=== PATIENT | female | born 1940 | race Caucasian/White ===

== ENCOUNTER 2018-10-04 11:48 | Inpatient (IN) | payer MEDICARE, OTHER ==
[2018-10-04] MEDS ORDERED: MORPHINE SULFATE 4 MG/ML SYRINGE IVP PRN (13:55)
[2018-10-04 15:24] LABS: HCT 42.7 % (34.0-46.0); HGB 13.3 gm/dL (11.4-16.0); MCHC 31.2 g/dL (31.0-37.0); MCV 86.6 fL (80.0-100.0); Mean Platelet Volume 6.6; Platelet Count 338 k/uL (150-450); RBC 4.92 m/uL (3.80-5.40); RDW 15.5 % (11.5-15.5)
[2018-10-04 15:30] LABS: Albumin 3.5 g/dL (3.5-5.0); Calcium 8.8 mg/dL (8.4-10.2); Magnesium 2.5 mg/dL (1.6-2.3); Phosphorus 5.4 mg/dL (2.5-4.5); Total Bilirubin 0.6 mg/dL (0.2-1.3); Total Protein 7.2 g/dL (6.3-8.2)
[2018-10-04] MEDS: CYCLOBENZAPRINE 5 MG TAB PO PRN (15:32)
--- NOTE | 2018-10-04 16:42 | P.GSCN ---
History of Present Illness Consult date: 10/04/18 Reason for Consult: Cellulitis, lymphedema Requesting physician: Janel Simeon History of present illness: This is a 78 year old female patient who follows with nurse practitioner Adarsh Kaplan on an outpatient basis. She has a previous medical history of lower extremity swelling, morbid obesity status post lap band surgery in 2009, bilateral knee replacements in 2004 and 2006 with DVT following surgery and sub sequent placement of [place] filter, hysterectomy, and breast lumpectomy. She was referred to Dr. Haider for lower extremity weeping and edema. She states she has had these issues for some time, however it has become significantly worse over the last 2 weeks. She also complains of lower extremity pain with rest and activity. She denies any other aggravating or alleviating symptoms. Due to the extent of her lower extremity edema and probable cellulitis patient was admitted to [facility] for IV antibiotics and aggressive therapy to her lower extremities with consultation placed to Dr. Haider for lower extremity management. Review of Systems Review of systems was completed and was negative except as noted. 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 Past Anesthesia/Blood Transfusion Reactions: No Reported Reaction, Motion Sickness Past Psychological History: No Psychological Hx Reported Smoking Status: Never smoker Past Alcohol Use History: None Reported Past Drug Use History: None Reported - Past Family History Father History Unknown: Yes Additional Family Medical History / Comment(s): Pt is adopted Mother History Unknown: Yes Additional Family Medical History / Comment(s): Pt is adopted. Medications and Allergies Home Medications Medication Instructions Recorded Confirmed Type Furosemide [Lasix] 40 mg PO BID 10/04/18 10/04/18 History Multivitamin [Multivitamins Adult 1 tab PO DAILY 10/04/18 10/04/18 History Gummies] Allergies Allergy/AdvReac Type Severity Reaction Status Date / Time clindamycin Allergy Rash/Hives Verified 10/04/18 14:45 torsemide Allergy Rash/Hives Verified 10/04/18 14:45 Surgical - Exam Vital Signs Resp 16 10/04/18 13:56 - General well developed, well nourished, no distress, moderate pain, chronically ill, obese - Eyes normal ocular movement - ENT no hearing loss - Neck trachea midline - Respiratory Lungs sounds clear bilaterally. Respirations even, nonlabored. Currently on room air. - Cardiovascular S1, S2 present. Regular rate and rhythm. Palpable peripheral pulses bilaterally. Generalized lymphedema present to bilateral lower extremities. No calf pain or tenderness noted. - Abdomen Abdomen: soft, non tender, bowel sounds - Genitourinary Deferred - Rectum Deferred - Integumentary Skin is warm and dry. Bilateral lower extremities with dry, rough and scaly patches in areas, as well as open/abraded areas with redness and serous drainage. See chart for pictures. - Neurologic normal coordination, normal sensation - Musculoskeletal normal posture - Psychiatric oriented to time, oriented to person, oriented to place, speech is normal, memory intact Results - Labs 10/04/18 14:55 10/04/18 14:55 Assessment and Plan Assessment: 1. Cellulitis, lymphedema of the lower extremities 2. History of lower extremity edema with weeping over the last several years 3. Morbid obesity, status post lap band surgery 2009 4. History of bilateral knee replacements with DVT following surgery and subse quent placement of [place] filter Plan: The patient was seen and examined at the bedside. Case was discussed with Dr. Haider. At this time our recommendations are for Silvadene cream to be applied to bilateral lower extremities, covered with Kerlix, and apply gentle Royer wraps from toes to knees daily as well as when necessary. Bilateral lower extremities should be elevated 6 inches above the level of the heart at all times except when sitting up to eat and to use the restroom. This was discussed in detail with the patient's primary nurse and the patient. Once edema has decreased and legs have dried out we will switch to absorptive silver dressings. Patient likely will need placement at discharge. Antibiotics and medical management of other comorbid conditions per primary care service. Thank you Dr. Simeon for this consult. We will continue to follow along with you. Time with Patient: Greater than 30
[2018-10-04] MEDS ORDERED: MELATONIN 3 MG TABLET PO PRN (17:25)
[2018-10-04] MEDS ORDERED: ACETAMINOPHEN TAB 325 MG TAB PO PRN (17:25)
[2018-10-04] MEDS ORDERED: NALOXONE 0.4 MG/ML 1 ML VIAL IV PRN (17:25)
[2018-10-04] MEDS ORDERED: ONDANSETRON 4 MG/2 ML VIAL IVP PRN (17:25)
[2018-10-04] MEDS ORDERED: BISACODYL 5 MG TABLET.DR PO PRN (17:25)
[2018-10-04] MEDS ORDERED: VANCOMYCIN IV PER PHARMACY 1 EACH MISC MISCELLANE PRN (17:28)
--- NOTE | 2018-10-04 17:34 | P.HPIM ---
History of Present Illness H&P Date: 10/04/18 Chief Complaint: lower extremity edema Patient is a 78-year-old female past medical history of chronic lymphedema, left larger me DVT, glaucoma and macular degeneration, chronic low back pain, and frequent pneumonias who presented to the Dr. Haider's office on the day of admission. There they were concerned about failed outpatient treatment of cellulitis and severe lymphedema and called for direct admission. Patient reports that she started having severe lower extremity swelling approximately 2 weeks ago. She went and saw her PCP Adarsh Kaplan, nurse krystin ctitioner 2 days later. She was started on antibiotics and Royer wrapping. She was trying to keep her legs dry and was doing twice-daily dressing. She noticed that she had limited improvement and therefore schedule an appointment with Dr. Enriquez. Patient seen and examined at bedside. She reports large community edema for 2 weeks associated with weeping, warmth, and erythema. She is also having some cramping in her upper leg and lower calf on the left. She reports that her PCP was trying to get home care set up but nobody took her insurance. She reports that the pain is worse when trying to be up and ambulating better when she is resting. She's been sitting and sleeping in a rocking chair with her feet elevated. She had been taking her Lasix once daily and this was increased to twice daily 2 weeks ago. She also reports that she was started on Cefdinir. She did not notice any improvement and therefore schedule an appointment Dr. Haider. She reports that she has had low energy and activity. She denies any recent shortness of breath, chest pain, palpitations, syncope, or cough. She states her appetite has been normal. She has not noted any significant weight loss or weight gain. Review of Systems Pertinent positives and negatives as discussed in HPI, a complete review of systems was performed and all other systems are negative. 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 Past Anesthesia/Blood Transfusion Reactions: No Reported Reaction, Motion Sickness Past Psychological History: No Psychological Hx Reported Smoking Status: Never smoker Past Alcohol Use History: None Reported Past Drug Use History: None Reported Additional History: Lives at home, uses a walker after suffering 2 falls in the last year. 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 - Past Family History Father History Unknown: Yes Additional Family Medical History / Comment(s): Pt is adopted Mother History Unknown: Yes Additional Family Medical History / Comment(s): Pt is adopted. Medications and Allergies Home Medications Medication Instructions Recorded Confirmed Type Furosemide [Lasix] 40 mg PO BID 10/04/18 10/04/18 History Multivitamin [Multivitamins Adult 1 tab PO DAILY 10/04/18 10/04/18 History Gummies] Allergies Allergy/AdvReac Type Severity Reaction Status Date / Time clindamycin Allergy Rash/Hives Verified 10/04/18 14:45 torsemide Allergy Rash/Hives Verified 10/04/18 14:45 Physical Exam Osteopathic Statement: *. No significant issues noted on an osteopathic structural exam other than those noted in the History and Physical/Consult. Vitals: Vital Signs Resp 10/04/18 13:56 16 Intake and Output 10/04/18 10/04/18 10/04/18 06:59 14:59 22:59 Other: Voiding Method Toilet Weight 139.1 kg General: Ill appearing, mild distress secondary to pain, appears at stated age, obese Derm: Bilateral lower extremity dressings in place as placed by vascular, toes with erythema, desquamation, and soft-patient asked me not to remove current dressings that were just placed. no unusual rashes/lesions no unusual ecchymoses, warm, dry Head: atraumatic, normocephalic, symmetric Eyes: EOMI, no lid lag, anicteric sclera, pupils equal round reactive to light ENT: Nose and ears atraumatic, no thrush, no pharyngeal erythema Neck: No thyromegaly, no cervical lymphadenopathy, trachea midline, supple Mouth: no lip lesion, mucus membranes moist Cardiovascular: S1S2 reg, no murmur, decreased posterior tibial pulse bilateral, Ansarca, capillary refill less than 2 seconds Lungs: Decreased bs bilateral, no rhonchi, no rales , no accessory muscle use Abdominal: soft, nontender to palpation, no guarding, no appreciable organomegaly, normal bowel sounds Ext: no gross muscle atrophy, muscle strength 5 out of 5 in upper extremities grossly, muslce stregth 3/5 in bilateral lower extremities, no contractures, Neuro: CN II-XI grossly intact, light touch intact all 4 extremities, finger to nose within normal limits, Psych: Alert, oriented, appropriate affect Results CBC & Chem 7: 10/04/18 14:55 10/04/18 14:55 Labs: Abnormal Lab Results - Last 24 Hours (Table) 10/04/18 10/04/18 Range/Units 14:55 14:55 WBC 13.0 H (3.8-10.6) k/uL BUN 57 H (7-17) mg/dL Creatinine 1.95 H (0.52-1.04) mg/dL Phosphorus 5.4 H (2.5-4.5) mg/dL Magnesium 2.5 H (1.6-2.3) mg/dL Thrombosis Risk Factor Assmnt - DVT/VTE Prophylaxis DVT/VTE Prophylaxis: Pharmacologic Prophylaxis ordered - Choose All That Apply Any of the Below Risk Factors Present?: Yes Each Factor Represents 1 point: Obesity (BMI >25), Swollen legs (current) Other Risk Factors: Yes Each Risk Factor Represents 3 Points: Age 75 years or older, History of DVT/PE Other congenital or acquired thrombophilia - If yes, enter type in comment: No Thrombosis Risk Factor Assessment Total Risk Factor Score: 8 Thrombosis Risk Factor Assessment Level: High Risk Assessment and Plan Assessment: Bilateral lower extremity cellulitis, failed outpatient treatment - vanco and unasyn - blood cultures Lymphedema, bilateral lower extremities - Vascular consult - bilateral unaboots - elevate legs - check echo - strict I and O - lasix IV BID - pain control morbid obesity - BMI 52.6 - structured outpatient weight loss MICHEAL - unknown baseline Cr - check UA - monitor closely with diuresis - avoid additional nephrotoxic agents The patient is admitted with an anticipated greater than 2 midnight stay for evaluation of cellulitis. Surrogate decision-maker: Daughter- Amy CODE STATUS:DNR DVT prophylaxis: Lovenox Discussed with: Patient, nursing, Dr. Haider Anticipated discharge date: 2-[address]: home with home health A total of 65 minutes was spent on the care of this complex patient more than 50% of the time was spent in counseling and care coordination.
[2018-10-04] MEDS: FUROSEMIDE 10 MG/ML 10 ML VIAL IV SCH (17:46)
[2018-10-04] MEDS ORDERED: VANCOMYCIN 2,000 MG in SODIUM CHLORIDE 0.9% 500 ML 500 ML IVPB ONE (18:00)
[2018-10-04 22:28] LABS: Appearance,Urine Clear (Clear); Bacteria,Urine Occasional /hpf; Bilirubin,Urine Negative (Negative); Blood,Urine Small (Negative); Color,Urine Light Yellow; Glucose,Urine (UA) Negative (Negative); Ketones,Urine Negative (Negative); Leukocyte Esterase,Urine Small (Negative); Nitrite,Urine Negative (Negative); Protein,Urine Negative (Negative); RBC,Urine 3 /hpf (0-5); Specific Gravity,Urine 1.007 (1.001-1.035); Squamous Epithelial Cell,Urine 1 /hpf (0-4); Urobilinogen,Urine <2.0 mg/dL (<2.0)
[2018-10-04] MEDS: AMPICILLIN-SULBACTAM 3 GM in SODIUM CHLORIDE 0.9% 100 ML IVPB SCH (23:39)
[2018-10-05] MEDS ORDERED: VANCOMYCIN 2,000 MG in SODIUM CHLORIDE 0.9% 500 ML 500 ML IVPB ONE (06:00)
[2018-10-05] MEDS: FUROSEMIDE 10 MG/ML 10 ML VIAL IV SCH ×2 (06:15→17:00)
[2018-10-05] MEDS: ENOXAPARIN 30 MG/0.3 ML SYRINGE SQ SCH (07:51)
[2018-10-05] MEDS: MULTIVITAMINS, THERA 1 EACH TAB PO SCH (07:51)
[2018-10-05 09:23] LABS: Calcium 8.3 mg/dL (8.4-10.2); Magnesium 2.2 mg/dL (1.6-2.3); Potassium 3.8 mmol/L (3.5-5.1)
[2018-10-05] MEDS: AMPICILLIN-SULBACTAM 3 GM in SODIUM CHLORIDE 0.9% 100 ML IVPB SCH ×2 (09:27→23:17)
[2018-10-05 09:32] LABS: HCT 40.2 % (34.0-46.0); HGB 12.4 gm/dL (11.4-16.0); MCH 26.8 pg (25.0-35.0); MCHC 30.9 g/dL (31.0-37.0); MCV 86.9 fL (80.0-100.0); Mean Platelet Volume 6.5; Platelet Count 366 k/uL (150-450); RBC 4.63 m/uL (3.80-5.40); RDW 15.4 % (11.5-15.5); WBC 13.1 k/uL (3.8-10.6)
--- NOTE | 2018-10-05 10:07 | US ---
EXAMINATION TYPE: US renals and bladder DATE OF EXAM: 10/05/2018 COMPARISON: NONE CLINICAL HISTORY: MICHEAL. EXAM MEASUREMENTS: Right Kidney: 11.5 x 6.1 x 4.8 cm Left Kidney: 11.7 x 5.9 x 5.9 cm Right Kidney: No gross evidence of hydronephrosis or gross evidence of renal mass. Left Kidney: No gross evidence of hydronephrosis or gross evidence of renal mass. Bladder: wnl Bilateral Jets seen: No Normal Post Void Residual: Unable to calculate There is no gross evidence for hydronephrosis at this point in time. No nephrolithiasis is seen. No masses are identified. The urinary bladder is anechoic. Bilateral ureteral jets are not seen. Suboptimal exam overall d/t large patient size, inpatient unable to void, hold inspiration or roll on side. IMPRESSION: Suboptimal exam due to technical difficulties as detailed above. No gross evidence of hydronephrosis nor nephrolithiasis.
[2018-10-05 11:02] LABS: T4, Free (Free Thyroxine) 1.12 ng/dL (0.78-2.19)
--- NOTE | 2018-10-05 13:02 | ECHOF ---
Referral Reason:heart failure MEASUREMENTS -------- HEIGHT: 162.6 cm WEIGHT: 138.8 kg BP: 92/59 RVIDd: 3.4 cm (< 3.3) IVSd: 1.5 cm (0.6 - 1.1) LVIDd: 3.7 cm (3.9 - 5.3) LVPWd: 1.5 cm (0.6 - 1.1) IVSs: 1.5 cm LVIDs: 2.4 cm LVPWs: 1.6 cm LA Diam: 3.6 cm (2.7 - 3.8) LAESV Index (A-L): 13.51 ml/m Ao Diam: 3.3 cm (2.0 - 3.7) AV Cusp: 2.0 cm (1.5 - 2.6) MV EXCURSION: 20.477 mm (> 18.000) MV EF SLOPE: 85 mm/s (70 - 150) EPSS: 0.2 cm MV E Rolando: 0.95 m/s MV DecT: 276 ms MV A Rolando: 1.15 m/s MV E/A Ratio: 0.83 RAP: 15.00 mmHg RVSP: 26.70 mmHg FINDINGS -------- Sinus rhythm. This was a technically adequate study. The left ventricular size is normal. There is moderate concentric left ventricular hypertrophy. O verall left ventricular systolic function is normal with, an EF between 60 - 65 %. The right ventricle is mildly enlarged. Normal LA size by volume 22+/-6 ml/m2. The right atrium is normal in size. Interatrial and interventricular septum intact. There is mild aortic valve sclerosis. The mitral valve leaflets are mildly thickened. Mild tricuspid regurgitation present. Right ventricular systolic pressure is normal at < 35 mmHg. The pulmonic valve was not well visualized. The aortic root size is normal. The inferior vena cava is dilated with poor inspiratory collapse which is consistent with estimated r ight atrial pressure of 15 mmHg. CONCLUSIONS -------- 1. Sinus rhythm. 2. This was a technically adequate study. 3. The left ventricular size is normal. 4. There is moderate concentric left ventricular hypertrophy. 5. Overall left ventricular systolic function is normal with, an EF between 60 - 65 %. 6. The right ventricle is mildly enlarged. 7. Normal LA size by volume 22+/-6 ml/m2. 8. The right atrium is normal in size. 9. Interatrial and interventricular septum intact. 10. There is mild aortic valve sclerosis. 11. The mitral valve leaflets are mildly thickened. 12. Mild tricuspid regurgitation present. 13. Right ventricular systolic pressure is normal at < 35 mmHg. 14. The pulmonic valve was not well visualized. 15. The aortic root size is normal. 16. The inferior vena cava is dilated with poor inspiratory collapse which is consistent with estimat ed right atrial pressure of 15 mmHg. TWIST PACKER: Lorenza Hinojosa RDCS
--- NOTE | 2018-10-05 16:02 | P.PN ---
Subjective Progress Note Date: 10/05/18 (Delayed charting seen at 1300) Principal diagnosis: Failed outpatient treatment of cellulitis Patient is a 78-year-old female past medical history of chronic lymphedema, left larger me DVT, glaucoma and macular degeneration, chronic low back pain, and frequent pneumonias who presented to the Dr. Haider's office on the day of admission. There they were concerned about failed outpatient treatment of cellulitis and severe lymphedema and called for direct admission. Patient reported that she started having severe lower extremity swelling approximately 2 weeks ago. She went and saw her PCP Adarsh Kaplan, nurse practitioner 2 days later. She was started on antibiotics and Royer wrapping. She was trying to keep her legs dry and was doing twice-daily dressing. She noticed that she had limited improvement and therefore schedule an appointment with Dr. Haider. She was admitted and started on IV lasix, vanco and unasyn. She was noted to have MICHEAL on admission. Renal US as normal. Echo obtained ED60- 65%, moderate LVH, E/A reversal consistent with diastolic dysfunction. BNP not diagnostic of CHF, suspect lymphedema. Patient seen and examined at bedside. She states her edema is much better, laser much more comfortable today, she is able to move better. Her shortness of breath is at baseline. She does denies any chest discomfort or dysuria. Objective - Vital Signs Vital signs: Vital Signs Temp 97.8 F 10/05/18 12:11 Pulse 86 10/05/18 12:11 Resp 16 10/05/18 12:11 BP 119/69 10/05/18 12:11 Pulse Ox 96 10/05/18 12:11 Intake & Output 10/04/18 10/05/18 10/05/18 18:59 06:59 18:59 Intake Total 400 100 100 Balance 400 100 100 Weight 139.1 kg Intake: Intake, IV Titration 100 100 Amount Ampicillin-Sulbactam 3 gm 100 100 In Sodium Chloride 0.9% 100 ml @ 200 mls/hr IVPB Q8HR [facility] Rx#:[id number] Oral 400 Other: Voiding Method Toilet Toilet Toilet # Voids 2 5 - Exam General: non toxic, no distress, appears at stated age, obese Derm: Dressings in place bilateral lower extremities, decreased erythema and skin softening over bilateral toes, decreased edema bilateral lower extremities warm, dry Head: atraumatic, normocephalic, symmetric Eyes: EOMI, no lid lag, anicteric sclera Mouth: no lip lesion, mucus membranes moist Cardiovascular: S1S2 reg, no murmur, positive posterior tibial pulse bilateral, Lungs: Decreased breath sounds bilateral, no rhonchi, no rales , no accessory muscle use Abdominal: soft, nontender to palpation, no guarding, no appreciable organomegaly Ext: no gross muscle atrophy, 3+ edema, no contractures Neuro: CN II-XI grossly intact, no focal neuro deficits Psych: Alert, oriented, appropriate affect - Labs CBC & Chem 7: 10/05/18 08:17 10/05/18 08:17 Labs: Abnormal Lab Results - Last 24 Hours (Table) 10/04/18 10/05/18 10/05/18 Range/Units 22:00 08:17 08:17 WBC 13.1 H (3.8-10.6) k/uL MCHC 30.9 L (31.0-37.0) g/dL BUN 47 H (7-17) mg/dL Creatinine 1.62 H (0.52-1.04) mg/dL Glucose 111 H (74-99) mg/dL Calcium 8.3 L (8.4-10.2) mg/dL TSH 9.120 H (0.465-4.680) mIU/L Urine Blood Small H (Negative) Ur Leukocyte Esterase Small H (Negative) Urine Bacteria Occasional H (None) /hpf Assessment and Plan Assessment: Bilateral lower extremity cellulitis, failed outpatient treatment - vanco and unasyn - blood cultures pending Lymphedema, bilateral lower extremities - Vascular recs appreciated - bilateral unaboots - elevate legs - echo with diastolic dysfunction - strict I and O - lasix IV BID - pain control morbid obesity - BMI 52.6 - structured outpatient weight loss MICHEAL - unknown baseline Cr -Urinalysis benign - monitor closely with diuresis - avoid additional nephrotoxic agents -Renal ultrasound normal DVT prophylaxis: Lovenox Discussed with: Patient, nursing, Dr. Haider Anticipated discharge date: 1-[address]: home with home health A total of 25 minutes was spent on the care of this complex patient more than 50% of the time was spent in counseling and care coordination.
--- NOTE | 2018-10-05 16:32 | P.PN ---
Subjective Progress Note Date: 10/05/18 Principal diagnosis: Cellulitis, lymphedema of the lower extremities, history of lower extremity edema with weeping over the last several years, macular degeneration, chronic low back pain, morbid obesity and is status post lap band surgery in 2009, history of bilateral knee replacements with DVT following surgery and subsequent placement of [place] filter. The patient is currently laying in bed with her bilateral lower extremities elevated greater than the level of her heart 6-8 inches. Currently denies any complaints of pain or shortness of breath. She does report that she has been wheezing off and on throughout the day. She reports that her bilateral lower extremities feel much improved today especially with having them elevated. Her bilateral lower extremity dressings were changed earlier by her registered nurse assigned to her today. She is complaining of some mild pain to her left thigh. There is no redness or ecchymosis present. A 2-D echocardiogram was completed today which showed her to have an overall left ventricular function to be normal with an ejection fraction between 60 and 65%, and mild tricuspid valve regurgitation. Objective - Vital Signs Vital signs: Vital Signs Temp 97.8 F 10/05/18 12:11 Pulse 86 10/05/18 12:11 Resp 16 10/05/18 12:11 BP 119/69 10/05/18 12:11 Pulse Ox 96 10/05/18 12:11 Intake & Output 10/04/18 10/05/18 10/05/18 18:59 06:59 18:59 Intake Total 400 100 100 Balance 400 100 100 Weight 139.1 kg Intake: Intake, IV Titration 100 100 Amount Ampicillin-Sulbactam 3 gm 100 100 In Sodium Chloride 0.9% 100 ml @ 200 mls/hr IVPB Q8HR [facility] Rx#:[id number] Oral 400 Other: Voiding Method Toilet Toilet Toilet # Voids 2 5 - Constitutional General appearance: Present: cooperative, morbidly obese, no acute distress - Respiratory Details: Lungs sounds essentially diminished throughout. No wheezes, crackles or rhonchi. Respirations are symmetrical and nonlabored. - Cardiovascular Details: Regular rhythm and rate. S1 and S2 present, negative for S3, gallop or murmur. 2+ edema to her bilateral lower extremities. Royer wraps in place from toes to just below the knee to her bilateral lower extremities. - Gastrointestinal Gastrointestinal Comment(s): Abdomen is soft, nontender and nondistended. No guarding or rigidity. No organomegaly. Active bowel sounds present on for abdominal quadrants. - Genitourinary Genitourinary Comment(s): Voiding clear yellow urine. - Integumentary Integumentary Comment(s): Skin is warm and dry. No clubbing or cyanosis is present. Dressings remain intact to her bilateral lower extremities. - Neurologic Neurologic: Present: CNII-XII intact - Musculoskeletal Musculoskeletal: Present: gait normal, generalized weakness, strength equal bilaterally - Psychiatric Psychiatric: Present: A&O x's 3, appropriate affect, intact judgment & insight - Allied health notes Allied health notes reviewed: nursing - Labs CBC & Chem 7: 10/05/18 08:17 10/05/18 08:17 Labs: Abnormal Lab Results - Last 24 Hours (Table) 10/04/18 10/05/18 10/05/18 Range/Units 22:00 08:17 08:17 WBC 13.1 H (3.8-10.6) k/uL MCHC 30.9 L (31.0-37.0) g/dL BUN 47 H (7-17) mg/dL Creatinine 1.62 H (0.52-1.04) mg/dL Glucose 111 H (74-99) mg/dL Calcium 8.3 L (8.4-10.2) mg/dL TSH 9.120 H (0.465-4.680) mIU/L Urine Blood Small H (Negative) Ur Leukocyte Esterase Small H (Negative) Urine Bacteria Occasional H (None) /hpf Assessment and Plan Assessment: 1. Cellulitis, lymphedema of the lower extremities 2. History of lower extremity edema with weeping over the last several years 3. Morbid obesity, status post lap band surgery 2009 4. History of bilateral knee replacements with DVT following surgery and subsequent placement of [place] filter Plan: 1. Medical management recommendations per Dr. Brown. 2. Continue wound care to her bilateral lower extremities using Silvadene cream, cover with Kerlix wrap and Royer wrap. Keep her bilateral lower extremities elevated above the level of her heart 6-8 inches when not sitting up for meals or ambulating. 3. GI and DVT prophylaxis. 4. Dr. Brown met with the patient and her family today in regards to extended care facility placement/Homecare. 5. More recommendations to follow based on patient's clinical course. Time with Patient: Greater than 30
[2018-10-05] MEDS: CYCLOBENZAPRINE 5 MG TAB PO PRN (22:02)
[2018-10-05] MEDS: NYSTATIN 100,000 UNIT/GM POWD 15 GM TOPICAL SCH (23:17)
[2018-10-05] MEDS: HYDROcodone/APAP 5-325MG 1 EACH TAB PO PRN (23:52)
[2018-10-06] MEDS: FUROSEMIDE 10 MG/ML 10 ML VIAL IV SCH ×2 (06:23→17:01)
[2018-10-06] MEDS: NYSTATIN 100,000 UNIT/GM POWD 15 GM TOPICAL SCH ×2 (08:51→20:18)
[2018-10-06] MEDS: MULTIVITAMINS, THERA 1 EACH TAB PO SCH (08:51)
[2018-10-06] MEDS: ENOXAPARIN 30 MG/0.3 ML SYRINGE SQ SCH (08:51)
[2018-10-06] MEDS: CYCLOBENZAPRINE 5 MG TAB PO PRN ×2 (08:54→19:17)
[2018-10-06] MEDS: HYDROcodone/APAP 5-325MG 1 EACH TAB PO PRN ×3 (08:54→20:23)
--- NOTE | 2018-10-06 10:10 | P.PN ---
Subjective Progress Note Date: 10/06/18 Principal diagnosis: Failed outpatient treatment of cellulitis Patient is a 78-year-old female past medical history of chronic lymphedema, left larger me DVT, glaucoma and macular degeneration, chronic low back pain, and frequent pneumonias who presented to the Dr. Haider's office on the day of admission. There they were concerned about failed outpatient treatment of cellulitis and severe lymphedema and called for direct admission. Patient reported that she started having severe lower extremity swelling approximately 2 weeks ago. She went and saw her PCP Adarsh Kaplan, nurse practitioner 2 days later. She was started on antibiotics and Royer wrapping. She was trying to keep her legs dry and was doing twice-daily dressing. She noticed that she had limited improvement and therefore schedule an appointment with Dr. Haider. She was admitted and started on IV lasix, vanco and unasyn. She was noted to have MICHEAL on admission. Renal US as normal. Echo obtained ED60- 65%, moderate LVH, E/A reversal consistent with diastolic dysfunction. BNP not diagnostic of CHF, suspect lymphedema. Had improvement in edema by the morning of 10/06. Patient seen and examined at bedside. Leg pain is improving, now having some left hip pain, no unusual shortness of breath, no chest pain. Going to the restroom frequently. Feeling much improved since admission. Objective - Vital Signs Vital signs: Vital Signs Temp 98.1 F 10/06/18 05:00 Pulse 76 10/06/18 05:00 Resp 17 10/06/18 05:00 BP 108/66 10/06/18 05:00 Pulse Ox 94 L 10/06/18 05:00 Intake & Output 10/05/18 10/06/18 10/06/18 18:59 06:59 18:59 Intake Total 100 220 Balance 100 220 Intake: Intake, IV Titration 100 100 Amount Ampicillin-Sulbactam 3 gm 100 In Sodium Chloride 0.9% 100 ml @ 200 mls/hr IVPB Q12HR [facility] Rx#:[id number] Ampicillin-Sulbactam 3 gm 100 In Sodium Chloride 0.9% 100 ml @ 200 mls/hr IVPB Q8HR [facility] Rx#:[id number] Oral 120 Other: Voiding Method Toilet Toilet # Voids 4 1 - Exam General: non toxic, no distress, appears at stated age, morbidly obese Derm: Dressings in place bilateral lower extremities, decreased erythema and skin sloughing over bilateral toes, decreased edema bilateral lower extremities warm, dry Head: atraumatic, normocephalic, symmetric Eyes: EOMI, no lid lag, anicteric sclera Mouth: no lip lesion, mucus membranes moist Cardiovascular: S1S2 reg, no murmur, positive posterior tibial pulse bilateral, Lungs: Decreased breath sounds bilateral, no rhonchi, no rales , no accessory muscle use Abdominal: soft, nontender to palpation, no guarding, no appreciable organomegaly Ext: no gross muscle atrophy, 3+ edema, no contractures Neuro: CN II-XI grossly intact, no focal neuro deficits Psych: Alert, oriented, appropriate affect - Labs CBC & Chem 7: 10/05/18 08:17 10/05/18 08:17 Labs: Microbiology - Last 24 Hours (Table) 10/04/18 18:14 Blood Culture - Preliminary Blood No Growth after 24 hours Assessment and Plan Assessment: Bilateral lower extremity cellulitis, failed outpatient treatment - vanco and unasyn - blood cultures negative to date Lymphedema, bilateral lower extremities - Vascular recs appreciated - bilateral unaboots - elevate legs, will pay for hospital bed at home - echo with diastolic dysfunction - strict I and O - lasix IV BID - pain control morbid obesity - BMI 52.6 - structured outpatient weight loss MICHEAL - unknown baseline Cr, AM labs pending -Urinalysis benign - monitor closely with diuresis - avoid additional nephrotoxic agents -Renal ultrasound normal Left hip pain Ecchymoses VS DTI left leg - elevate - off load, frequent turns DVT prophylaxis: Lovenox Discussed with: Patient, nursing Anticipated discharge date: 1-[address]: home with home health A total of 25 minutes was spent on the care of this complex patient more than 50% of the time was spent in counseling and care coordination.
[2018-10-06 10:16] LABS: Calcium 8.3 mg/dL (8.4-10.2); Potassium 3.1 mmol/L (3.5-5.1)
[2018-10-06 10:21] LABS: Vancomycin,Random 15.7 ug/mL
[2018-10-06] MEDS: AMPICILLIN-SULBACTAM 3 GM in SODIUM CHLORIDE 0.9% 100 ML IVPB SCH ×2 (10:25→22:05)
[2018-10-06 10:56] LABS: HCT 40.7 % (34.0-46.0); HGB 12.7 gm/dL (11.4-16.0); MCH 26.9 pg (25.0-35.0); MCHC 31.2 g/dL (31.0-37.0); MCV 86.4 fL (80.0-100.0); Mean Platelet Volume 6.8; Platelet Count 329 k/uL (150-450); RBC 4.71 m/uL (3.80-5.40); RDW 15.6 % (11.5-15.5); WBC 12.7 k/uL (3.8-10.6)
[2018-10-06] MEDS ORDERED: POTASSIUM CHLORIDE ER 20 MEQ TAB.ER PO STA (14:25)
[2018-10-06] MEDS ORDERED: POTASSIUM CHLORIDE 20 MEQ in WATER FOR INJECTION 1 100ML.BAG IVPB ONE (15:30)
[2018-10-06] MEDS: VANCOMYCIN 2,000 MG in SODIUM CHLORIDE 0.9% 500 ML 500 ML IVPB SCH (15:53)
[2018-10-07] MEDS: CYCLOBENZAPRINE 5 MG TAB PO PRN ×2 (04:18→20:19)
[2018-10-07] MEDS: FUROSEMIDE 10 MG/ML 10 ML VIAL IV SCH ×2 (06:00→18:12)
[2018-10-07] MEDS: HYDROcodone/APAP 5-325MG 1 EACH TAB PO PRN ×3 (06:04→20:19)
[2018-10-07] MEDS: AMPICILLIN-SULBACTAM 3 GM in SODIUM CHLORIDE 0.9% 100 ML IVPB SCH ×2 (09:19→20:19)
[2018-10-07] MEDS: MULTIVITAMINS, THERA 1 EACH TAB PO SCH (09:19)
[2018-10-07] MEDS: ENOXAPARIN 40 MG/0.4 ML SYRINGE SQ SCH (09:19)
[2018-10-07] MEDS: NYSTATIN 100,000 UNIT/GM POWD 15 GM TOPICAL SCH ×2 (09:21→20:19)
--- NOTE | 2018-10-07 09:33 | P.PN ---
Subjective Progress Note Date: 10/07/18 Principal diagnosis: Failed outpatient treatment of cellulitis Patient is a 78-year-old female past medical history of chronic lymphedema, left larger me DVT, glaucoma and macular degeneration, chronic low back pain, and frequent pneumonias who presented to the Dr. Haider's office on the day of admission. There they were concerned about failed outpatient treatment of cellulitis and severe lymphedema and called for direct admission. Patient reported that she started having severe lower extremity swelling approximately 2 weeks ago. She went and saw her PCP Adarsh Kaplan, nurse practitioner 2 days later. She was started on antibiotics and Royer wrapping. She was trying to keep her legs dry and was doing twice-daily dressing. She noticed that she had limited improvement and therefore schedule an appointment with Dr. Haider. She was admitted and started on IV lasix, vanco and unasyn. She was noted to have MICHEAL on admission. Renal US as normal. Echo obtained ED60- 65%, moderate LVH, E/A reversal consistent with diastolic dysfunction. BNP not diagnostic of CHF, suspect lymphedema. Had improvement in edema by the morning of 10/06. Still unable to get up without assistance but getting easier with diuresis. Patient seen and examined at bedside. Mobility is increasing somewhat, but still having difficulty going from sitting to standing without assistance. Lower extremity edema is improving. No nausea or vomiting. No constipation or diarrhea. No chest pain. Patient denies any difficulty breathing, however it is noted that she gets very dyspneic with exertion. Objective - Vital Signs Vital signs: Vital Signs Temp 98.0 F 10/07/18 05:00 Pulse 82 10/07/18 05:00 Resp 16 10/07/18 05:00 BP 126/67 10/07/18 05:00 Pulse Ox 96 10/07/18 05:00 Intake & Output 10/06/18 10/07/18 10/07/18 18:59 06:59 18:59 Intake Total 980 Balance 980 Intake: Intake, IV Titration 200 Amount Ampicillin-Sulbactam 3 gm 100 In Sodium Chloride 0.9% 100 ml @ 200 mls/hr IVPB Q12HR [facility] Rx#:[id number] Potassium Chloride 20 meq 100 In Water For Injection 1 100ml.bag @ 50 mls/hr IVPB ONCE ONE Rx#: [id number] Oral 780 Other: Voiding Method Toilet Toilet # Voids 2 4 - Exam General: non toxic, no distress, appears at stated age, morbidly obese Derm: Dressings in place bilateral lower extremities, decreased erythema and skin sloughing over bilateral toes, decreased edema bilateral lower extremities warm, dry Head: atraumatic, normocephalic, symmetric Eyes: EOMI, no lid lag, anicteric sclera Mouth: no lip lesion, mucus membranes moist Cardiovascular: S1S2 reg, no murmur, positive posterior tibial pulse bilateral, Lungs: Decreased breath sounds bilateral, no rhonchi, no rales , no accessory muscle use Abdominal: soft, nontender to palpation, no guarding, no appreciable organomegaly Ext: no gross muscle atrophy, 3+ edema, no contractures Neuro: CN II-XI grossly intact, no focal neuro deficits Psych: Alert, oriented, appropriate affect - Labs CBC & Chem 7: 10/06/18 09:06 10/06/18 09:06 Labs: Abnormal Lab Results - Last 24 Hours (Table) 10/06/18 10/06/18 Range/Units 09:06 09:06 WBC 12.7 H (3.8-10.6) k/uL RDW 15.6 H (11.5-15.5) % Potassium 3.1 L (3.5-5.1) mmol/L BUN 35 H (7-17) mg/dL Creatinine 1.32 H (0.52-1.04) mg/dL Glucose 136 H (74-99) mg/dL Calcium 8.3 L (8.4-10.2) mg/dL Microbiology - Last 24 Hours (Table) 10/04/18 18:14 Blood Culture - Preliminary Blood No Growth after 48 hours Assessment and Plan Assessment: Bilateral lower extremity cellulitis, failed outpatient treatment - vanco and unasyn - blood cultures negative to date -Would plan to send patient home likely on Doxy for MRSA coverage as she is ALLERGIC to clindamycin, would avoid Bactrim with her history of kidney disease, and likely could benefit from beta lactam coverage as well such as Augmentin. Lymphedema, bilateral lower extremities - Vascular recs appreciated - bilateral unaboots - elevate legs, will pay for hospital bed at home - echo with diastolic dysfunction, doubt CHF as clinally more consistent with lymphedema - strict I and O - lasix IV BID - pain control MICHEAL - unknown baseline Cr, AM labs pending - Urinalysis benign - monitor closely with diuresis - avoid additional nephrotoxic agents - Renal ultrasound normal morbid obesity - BMI 52.6 - structured outpatient weight loss Left hip pain, suspect secondary arthritis -Continue with pain medications and Flexeril as needed Ecchymoses VS DTI left leg - elevate - off load, frequent turns Plan is for discharge home in a.m. She already has a hospital bed being delivered tomorrow she is running for 30 days. Cor home. Agreed to follow with her. She has a nurse practitioner Reji with her PCP that she will continue to follow with. DVT prophylaxis: Lovenox Discussed with: Patient, nursing Anticipated discharge date: 1-[address]: home with home health A total of 25 minutes was spent on the care of this complex patient more than 50% of the time was spent in counseling and care coordination.
[2018-10-07 11:44] LABS: Calcium 7.9 mg/dL (8.4-10.2)
[2018-10-07 11:59] LABS: HCT 35.7 % (34.0-46.0); HGB 11.4 gm/dL (11.4-16.0); Hypochromasia Slight; MCH 28.3 pg (25.0-35.0); MCV 88.5 fL (80.0-100.0); Mean Platelet Volume 7.2; Platelet Count 302 k/uL (150-450); RBC 4.03 m/uL (3.80-5.40); RDW 15.9 % (11.5-15.5); WBC 12.7 k/uL (3.8-10.6)
[2018-10-07] MEDS: VANCOMYCIN 2,000 MG in SODIUM CHLORIDE 0.9% 500 ML 500 ML IVPB SCH (13:27)
[2018-10-07] MEDS ORDERED: POTASSIUM BICARBONATE/CIT AC 20 MEQ TABLET.EFF PO ONE (14:45)
[2018-10-07] MEDS: SILVER sulfADIAZINE Cream 400 GM 1 APPLIC APPLIC TOPICAL SCH (14:45)
[2018-10-07] MEDS ORDERED: POTASSIUM CHLORIDE 20 MEQ in WATER FOR INJECTION 1 100ML.BAG IVPB ONE (16:30)
[2018-10-07] MEDS ORDERED: POTASSIUM CHLORIDE ER 20 MEQ TAB.ER PO ONE (18:30)
[2018-10-08] MEDS: HYDROcodone/APAP 5-325MG 1 EACH TAB PO PRN ×3 (03:06→15:51)
[2018-10-08] MEDS: FUROSEMIDE 10 MG/ML 10 ML VIAL IV SCH (05:49)
[2018-10-08 07:41] LABS: HCT 37.3 % (34.0-46.0); HGB 11.4 gm/dL (11.4-16.0); MCH 27.1 pg (25.0-35.0); MCHC 30.7 g/dL (31.0-37.0); MCV 88.2 fL (80.0-100.0); Mean Platelet Volume 6.8; Platelet Count 311 k/uL (150-450); RBC 4.23 m/uL (3.80-5.40); RDW 15.9 % (11.5-15.5); WBC 10.9 k/uL (3.8-10.6)
[2018-10-08 07:54] LABS: Magnesium 1.5 mg/dL (1.6-2.3); Potassium 3.4 mmol/L (3.5-5.1)
[2018-10-08] MEDS: ENOXAPARIN 40 MG/0.4 ML SYRINGE SQ SCH (08:22)
[2018-10-08] MEDS: MULTIVITAMINS, THERA 1 EACH TAB PO SCH (08:22)
[2018-10-08] MEDS: AMPICILLIN-SULBACTAM 3 GM in SODIUM CHLORIDE 0.9% 100 ML IVPB SCH (08:22)
[2018-10-08] MEDS: NYSTATIN 100,000 UNIT/GM POWD 15 GM TOPICAL SCH (08:25)
[2018-10-08] MEDS: SILVER sulfADIAZINE Cream 400 GM 1 APPLIC APPLIC TOPICAL SCH (08:26)
[2018-10-08] MEDS: POTASSIUM CHLORIDE ER 20 MEQ TAB.ER PO SCH ×2 (10:53→12:50)
[2018-10-08] MEDS: CYCLOBENZAPRINE 5 MG TAB PO PRN (11:38)
[2018-10-08 12:29] VITALS: BP 140/77; PULSE 86; RESP 17; TEMP 97.9
[2018-10-08] MEDS: VANCOMYCIN 2,000 MG in SODIUM CHLORIDE 0.9% 500 ML 500 ML IVPB SCH (12:49)
--- NOTE | 2018-10-08 12:50 | P.PN ---
Subjective Progress Note Date: 10/08/18 Principal diagnosis: Bilateral lower extremity lymphedema, chronic venous stasis, cellulitis Legs have improved nicely and are feeling better since hospitalization Objective - Vital Signs Vital signs: Vital Signs Temp 97.9 F 10/08/18 12:29 Pulse 86 10/08/18 12:29 Resp 17 10/08/18 12:29 BP 140/77 10/08/18 12:29 Pulse Ox 96 10/08/18 12:29 Intake & Output 10/07/18 10/08/18 10/08/18 18:59 06:59 18:59 Intake Total 1460 Output Total 6 Balance -6 1460 Intake: Intake, IV Titration 200 Amount Ampicillin-Sulbactam 3 gm 200 In Sodium Chloride 0.9% 100 ml @ 200 mls/hr IVPB Q12HR [facility] Rx#:[id number] Oral 1260 Output: Urine 6 Other: Voiding Method Toilet Toilet Toilet # Voids 1 # Bowel Movements 1 - Exam Significant improvement in size and amount of weeping and redness of the legs - Labs CBC & Chem 7: 10/08/18 06:42 10/08/18 06:42 Labs: Abnormal Lab Results - Last 24 Hours (Table) 10/08/18 10/08/18 Range/Units 06:42 06:42 WBC 10.9 H (3.8-10.6) k/uL MCHC 30.7 L (31.0-37.0) g/dL RDW 15.9 H (11.5-15.5) % Potassium 3.4 L (3.5-5.1) mmol/L Carbon Dioxide 34 H (22-30) mmol/L BUN 20 H (7-17) mg/dL Calcium 8.0 L (8.4-10.2) mg/dL Magnesium 1.5 L (1.6-2.3) mg/dL Microbiology - Last 24 Hours (Table) 10/04/18 18:14 Blood Culture - Preliminary Blood No Growth after 72 hours Assessment and Plan (1) Cellulitis Current Visit: Yes Status: Acute Code(s): L03.90 - CELLULITIS, UNSPECIFIED SNOMED Code(s): 948827991 (2) Lymphedema Current Visit: Yes Status: Acute Code(s): I89.0 - LYMPHEDEMA, NOT ELSEWHERE CLASSIFIED SNOMED Code(s): 724229816 Plan: Patient has improve nicely. I discussed in detail with the patient the need for continued leg compression and major elevation until her ulcerations are fully resolved and the weeping ulcers resolved. She will continue with wraps and elevation at home. I will follow up in the office in a couple of weeks.
--- NOTE | 2018-10-08 13:27 | P.DS ---
Providers Date of admission: 10/04/18 11:55 Expected date of discharge: 10/08/18 Attending physician: Janel Zhang DO Consults: 10/04/18 14:19 Consult Physician Routine Consulting Provider: Carlos Haider Consult Reason/Comments: cellulitis, lymphedema Do you want consulting provider notified?: Yes Primary care physician: [facility] Course: The patient is a 78-year-old female with a PMH of morbid obesity, chronic lymphedema, provoked DVT following orthopedic procedure (knee replacement), and chronic lower back pain had presented to the ED for complaints of worsening lower extremity swelling and pain for the previous 2 weeks. The patient was seen and evaluated by her PCP and had been initiated on antibiotics and was advised to use Royer bandage which did not alleviate her symptoms. The patient was admitted for further management and was started on IV Lasix along with vancomycin and Unasyn. The patient was also noted to have MICHEAL with subsequent renal ultrasound normal. The patient's lower extremity edema gradually improved and her cellulitis began to clear. Dr. Haider also evaluated the patient while inpatient and recommendations were appreciated. The patient was seen and examined at the bedside on the day of discharge. She noted improvement in her lower extremity pain and eagerness to be discharged to home. She denied any additional complaints including chest pain, shortness of breath, nausea, vomiting, fever, chills, or dysuria. Physical Examination General: Non-toxic, in no acute distress, appears stated age, morbidly obese HEENT: NC/AT, anicteric sclerae, moist conjunctiva, no lid-lag, PERRLA Cardiovascular: S1/S2 wnl, no murmurs, rubs, or gallops Lungs: Clear to auscultation, normal respiratory effort, no accessory muscle use Abdominal: Soft, non-tender, non-distended, no guarding, rebound, or rigidity Extremities: 2+ julio LE pitting edema w/ chronic venous stasis changes, lateral LLE w/ erythema and some sloughing Psychiatric: Alert and oriented to person, place and time, appropriate affect Neuro: CN II-XII grossly intact, no focal deficits Discharge diagnosis: Lower extremity cellulitis; lymphedema; hypokalemia; hypomagnasemia; morbid obesity; resolved: MICHEAL A total of 50 minutes of time were spent preparing this complex discharge summary. Patient Condition at Discharge: Stable Plan - Discharge Summary Discharge Rx Participant: No New Discharge Prescriptions: New Amoxicillin/Potassium Clav [Augmentin 500-125 Tablet] 1 tab PO Q12HR #6 tab SILVER sulfADIAZINE Cream [Silvadene 1% Cream] 1 applic TOPICAL DAILY #1 cream Doxycycline [Vibramycin] 100 mg PO BID 3 Days #6 capsule Continue Furosemide [Lasix] 40 mg PO BID Multivitamin [Multivitamins Adult Gummies] 1 tab PO DAILY Discharge Medication List Furosemide [Lasix] 40 mg PO BID 10/04/18 [History] Multivitamin [Multivitamins Adult Gummies] 1 tab PO DAILY 10/04/18 [History] Amoxicillin/Potassium Clav [Augmentin 500-125 Tablet] 1 tab PO Q12HR #6 tab 10/08/18 [Rx] Doxycycline [Vibramycin] 100 mg PO BID 3 Days #6 capsule 10/08/18 [Rx] SILVER sulfADIAZINE Cream [Silvadene 1% Cream] 1 applic TOPICAL DAILY #1 cream 10/08/18 [Rx] Follow up Appointment(s)/Referral(s): [facility], [NON-STAFF] - 1-2 Days Carlos Haider DO [Doctor of Osteopathic Medicine] - 10/11/18 8:45 am Patient Instructions/Handouts: Silver Sulfadiazine (On the skin), Doxycycline (By mouth), Amoxicillin/Clavulanate Potassium (By mouth), Cellulitis (DC), Lymphedema (DC) Activity/Diet/Wound Care/Special Instructions: Please take the prescribed antibiotics (Doxycycline and Augmentin) to complete the course. Continue with wound care with Silvadene Cream with Kerlix dressing and ROYER bandage. Please use your hospital bed and elevated both legs 6-8 inches above the level of the heart at all times except when eating or going to use the bathroom. Discharge Disposition: HOME WITH HOME HEALTH SERVICES
== END 2018-10-08 14:45 | disposition home health service (06) | DRG 300 ==
LOC: 3NMEDONC 11:55
PROVIDERS: ADMIT Internal Medicine; ATTEND Internal Medicine
DX: I87.2 Venous insufficiency (chronic) (peripheral) (principal); L03.116 Cellulitis of left lower limb; N17.9 Acute kidney failure, unspecified; Z68.43 Body mass index [BMI] 50.0-59.9, adult; L03.115 Cellulitis of right lower limb; E66.01 Morbid (severe) obesity due to excess calories; E83.42 Hypomagnesemia; Z96.653 Presence of artificial knee joint, bilateral; H35.30 Unspecified macular degeneration; Z66 Do not resuscitate; B37.2 Candidiasis of skin and nail; E87.6 Hypokalemia; Z88.1 Allergy status to other antibiotic agents; Z90.710 Acquired absence of both cervix and uterus; Z98.84 Bariatric surgery status; Z86.718 Personal history of other venous thrombosis and embolism; Z87.01 Personal history of pneumonia (recurrent); Z88.8 Allergy status to other drugs, medicaments and biological substances; Z98.890 Other specified postprocedural states
CPT/HCPCS: 76770; 80048; 80053; 80202; 81001; 83735; 83880; 84100; 84439; 84443; 85027; 87040; 93306